=== PATIENT | male | born 1955 | race African-American/Black ===

== ENCOUNTER 2020-11-06 16:09 | Inpatient (IN) | payer OTHER ==
[2020-11-06] MEDS ORDERED: DEXAMETHASONE SOD PHOSPHATE 10 MG/1 ML VIAL IVPUSH ONE (17:39)
[2020-11-06] MEDS ORDERED: DEXAMETHASONE SOD PHOSPHATE 10 MG/1 ML VIAL ONE (17:41)
[2020-11-06 18:19] LABS: VENOUS BASE EXCESS -2.6 mmol/L (-2-2); VENOUS PCO2 43.3 mmHg (38-52); VENOUS PH 7.345 (7.310-7.410)
[2020-11-06 18:26] LABS: BASO % 1.6 % (0-2.0); EOS % 0.2 % (0-4.5); HEMATOCRIT 42.3 % (35.4-49); HEMOGLOBIN 14.6 GM/dL (11.7-16.9); LYMPH % 6.1 % (8-40); MCH 31.6 pg (25.7-33.7); MCHC 34.4 g/dl (32.0-35.9); MEAN CELL VOLUME 91.7 fl (80-96); MEAN PLT VOLUME 8.9 fl (7.5-11.1); MONO % 7.9 % (3.8-10.2); NEUT % 84.2 % (42.8-82.8); PLATELET COUNT 234 K/MM3 (134-434); RBC 4.61 M/mm3 (4.00-5.60); RDW 13.2 % (11.9-15.9); WHITE BLOOD COUNT 6.6 K/mm3 (4.0-10.0)
[2020-11-06 18:31] LABS: INR 2.02 (0.83-1.09); PROTHROMBIN TIME (PATIENT) 24.3 SEC (9.7-13.0)
[2020-11-06 18:34] LABS: ACTIVATED PTT 32.3 SECONDS (25.2-36.5)
[2020-11-06] MEDS ORDERED: AZITHROMYCIN 500 MG TABLET PO ONE (18:36)
[2020-11-06] MEDS ORDERED: CEFTRIAXONE 1,000 MG in DEXTROSE 5%-WATER - 50 ML IVPB ONE (18:36)
[2020-11-06 18:39] LABS: CHLORIDE 104 mmol/L (98-107); POTASSIUM 4.5 mmol/L (3.5-5.1); SODIUM 140 mmol/L (136-145)
[2020-11-06 18:41] LABS: ANION GAP 6 MMOL/L (8-16); BLOOD UREA NITROGEN 15.6 mg/dL (7-18); CALCIUM 8.7 mg/dL (8.5-10.1); CO2 29 mmol/L (21-32)
[2020-11-06 18:42] LABS: ALBUMIN 3.2 g/dl (3.4-5.0); GLUCOSE,RANDOM 106 mg/dL (74-106)
[2020-11-06 18:44] LABS: CREATININE 1.1 mg/dL (0.55-1.3)
[2020-11-06 18:45] LABS: SGOT/AST 34 U/L (15-37); SGPT/ALT 23 U/L (13-61)
[2020-11-06 18:46] LABS: BILIRUBIN,TOTAL 0.8 mg/dL (0.2-1); LDH 722 U/L (87-246)
[2020-11-06 18:47] LABS: ALK PHOS 53 U/L (45-117)
[2020-11-06] MEDS ORDERED: CEFTRIAXONE 1 GM/50 ML BAG ONE (19:06)
[2020-11-06] MEDS ORDERED: AZITHROMYCIN 500 MG TABLET ONE (19:06)
[2020-11-06] MEDS ORDERED: APIXABAN 5 MG TABLET PO ONE (23:15)
[2020-11-06] MEDS ORDERED: APIXABAN 5 MG TABLET ONE (23:28)
[2020-11-07] MEDS ORDERED: MAG HYDROX/AL HYDROX/SIMETH 30 ML UNIT-DOSE CUP ONE (03:39)
[2020-11-07 07:04] LABS: BASO % 0.1 % (0-2.0); HEMATOCRIT 41.9 % (35.4-49); HEMOGLOBIN 14.6 GM/dL (11.7-16.9); LYMPH % 9.8 % (8-40); MCH 31.8 pg (25.7-33.7); MCHC 34.8 g/dl (32.0-35.9); MEAN CELL VOLUME 91.6 fl (80-96); MEAN PLT VOLUME 8.9 fl (7.5-11.1); MONO % 4.8 % (3.8-10.2); NEUT % 85.3 % (42.8-82.8); PLATELET COUNT 270 K/MM3 (134-434); RBC 4.58 M/mm3 (4.00-5.60); RDW 13.8 % (11.9-15.9); WHITE BLOOD COUNT 5.6 K/mm3 (4.0-10.0)
[2020-11-07 07:22] LABS: POTASSIUM 4.4 mmol/L (3.5-5.1)
[2020-11-07 07:24] LABS: CALCIUM 9.1 mg/dL (8.5-10.1)
[2020-11-07 07:25] LABS: ALBUMIN 3.1 g/dl (3.4-5.0); BLOOD UREA NITROGEN 19.5 mg/dL (7-18)
[2020-11-07 07:29] LABS: BILIRUBIN,TOTAL 0.6 mg/dL (0.2-1)
[2020-11-07] MEDS ORDERED: APIXABAN 5 MG TABLET PO SCH (10:00)
[2020-11-07] MEDS ORDERED: DEXAMETHASONE SOD PHOSPHATE 10 MG/1 ML VIAL ONE (11:05)
[2020-11-07] MEDS ORDERED: ASCORBIC ACID 500 MG TABLET (FP) ONE (11:05)
[2020-11-07] MEDS ORDERED: CHOLECALCIFEROL (VIT D3) 1,000 UNIT (25 MCG) TABLET ONE (11:06)
[2020-11-07] MEDS ORDERED: APIXABAN 5 MG TABLET ONE (11:06)
[2020-11-07] MEDS ORDERED: ZINC SULFATE 220 MG CAPSULE (FP) ONE (11:06)
[2020-11-07] MEDS ORDERED: CEFTRIAXONE 1 GM/50 ML BAG ONE (11:06)
[2020-11-07] MEDS: ZINC SULFATE 220 MG CAPSULE (FP) PO SCH ×2 (11:23→22:08)
[2020-11-07] MEDS: DEXAMETHASONE SOD PHOSPHATE 4 MG/1 ML VIAL IVPUSH SCH (11:23)
[2020-11-07] MEDS: ASCORBIC ACID 500 MG TABLET (FP) PO SCH ×2 (11:24→22:08)
[2020-11-07] MEDS: CEFTRIAXONE 1 GM in DEXTROSE 5%-WATER - 50 ML IVPB SCH (11:24)
[2020-11-07] MEDS: CHOLECALCIFEROL (VIT D3) 1,000 UNIT (25 MCG) TABLET PO SCH (11:24)
[2020-11-07] MEDS: AZITHROMYCIN IVPB 250 MG in DEXTROSE 5%-WATER - 250 ML IVPB SCH (12:00)
[2020-11-07] MEDS: ENOXAPARIN NA (PORCINE) 120 MG/0.8 ML DISP.SYRIN SQ SCH (23:06)
[2020-11-08 00:05] VITALS: BMI 34.9
[2020-11-08 07:23] LABS: BASO % 0.1 % (0-2.0); HEMATOCRIT 40.4 % (35.4-49); HEMOGLOBIN 13.6 GM/dL (11.7-16.9); LYMPH % 3.2 % (8-40); MCH 30.9 pg (25.7-33.7); MCHC 33.6 g/dl (32.0-35.9); MEAN CELL VOLUME 92.2 fl (80-96); MEAN PLT VOLUME 8.8 fl (7.5-11.1); MONO % 6.5 % (3.8-10.2); NEUT % 90.2 % (42.8-82.8); PLATELET COUNT 325 K/MM3 (134-434); RBC 4.39 M/mm3 (4.00-5.60); RDW 13.5 % (11.9-15.9); WHITE BLOOD COUNT 14.9 K/mm3 (4.0-10.0)
[2020-11-08 07:46] LABS: POTASSIUM 4.8 mmol/L (3.5-5.1)
[2020-11-08 08:24] LABS: ALBUMIN 2.6 g/dl (3.4-5.0); BLOOD UREA NITROGEN 21.5 mg/dL (7-18); CALCIUM 8.4 mg/dL (8.5-10.1)
[2020-11-08 08:29] LABS: BILIRUBIN,TOTAL 0.6 mg/dL (0.2-1); TOT PROT 6.1 g/dl (6.4-8.2)
[2020-11-08] MEDS ORDERED: PT OWN MED DRAWER 7, Y5N ONE (09:22)
[2020-11-08] MEDS ORDERED: cefTRIAXone SODIUM 1 GM VIAL ONE (09:23)
[2020-11-08] MEDS ORDERED: DEXTROSE 5%-WATER - 50 ML IVPB ONE (09:23)
[2020-11-08] MEDS: ASCORBIC ACID 500 MG TABLET (FP) PO SCH ×2 (09:56→21:57)
[2020-11-08] MEDS: CHOLECALCIFEROL (VIT D3) 1,000 UNIT (25 MCG) TABLET PO SCH (09:56)
[2020-11-08] MEDS: ENOXAPARIN NA (PORCINE) 120 MG/0.8 ML DISP.SYRIN SQ SCH ×2 (09:56→10:11)
[2020-11-08] MEDS: ZINC SULFATE 220 MG CAPSULE (FP) PO SCH ×2 (09:56→21:57)
[2020-11-08] MEDS: CEFTRIAXONE 1 GM in DEXTROSE 5%-WATER - 50 ML IVPB SCH (09:56)
[2020-11-08] MEDS: DEXAMETHASONE SOD PHOSPHATE 4 MG/1 ML VIAL IVPUSH SCH (09:56)
[2020-11-08] MEDS: AZITHROMYCIN IVPB 250 MG in DEXTROSE 5%-WATER - 250 ML IVPB SCH (11:01)
[2020-11-08] MEDS ORDERED: APIXABAN 5 MG TABLET PO ONE (12:30)
[2020-11-08] MEDS: APIXABAN 5 MG TABLET PO SCH (21:57)
[2020-11-09 07:50] LABS: BASO % 0.1 % (0-2.0); HEMATOCRIT 41.3 % (35.4-49); HEMOGLOBIN 13.8 GM/dL (11.7-16.9); LYMPH % 7.1 % (8-40); MCHC 33.5 g/dl (32.0-35.9); MEAN CELL VOLUME 92.4 fl (80-96); MEAN PLT VOLUME 7.8 fl (7.5-11.1); NEUT % 84.8 % (42.8-82.8); PLATELET COUNT 308 K/MM3 (134-434); RBC 4.47 M/mm3 (4.00-5.60); RDW 13.7 % (11.9-15.9); WHITE BLOOD COUNT 11.9 K/mm3 (4.0-10.0)
[2020-11-09 08:17] LABS: POTASSIUM 4.1 mmol/L (3.5-5.1)
[2020-11-09 08:31] LABS: CALCIUM 8.7 mg/dL (8.5-10.1)
[2020-11-09 08:32] LABS: BLOOD UREA NITROGEN 19.2 mg/dL (7-18)
[2020-11-09 08:34] LABS: ALBUMIN 2.7 g/dl (3.4-5.0)
[2020-11-09 08:36] LABS: BILIRUBIN,TOTAL 0.7 mg/dL (0.2-1); TOT PROT 6.1 g/dl (6.4-8.2)
[2020-11-09] MEDS ORDERED: cefTRIAXone SODIUM 1 GM VIAL ONE (09:41)
[2020-11-09] MEDS ORDERED: DEXTROSE 5%-WATER - 50 ML IVPB ONE (09:41)
[2020-11-09] MEDS: APIXABAN 5 MG TABLET PO SCH ×2 (10:12→22:05)
[2020-11-09] MEDS: ASCORBIC ACID 500 MG TABLET (FP) PO SCH ×2 (10:12→22:05)
[2020-11-09] MEDS: CHOLECALCIFEROL (VIT D3) 1,000 UNIT (25 MCG) TABLET PO SCH (10:12)
[2020-11-09] MEDS: CEFTRIAXONE 1 GM in DEXTROSE 5%-WATER - 50 ML IVPB SCH (10:12)
[2020-11-09] MEDS: ZINC SULFATE 220 MG CAPSULE (FP) PO SCH ×2 (10:12→22:05)
[2020-11-09] MEDS: DEXAMETHASONE SOD PHOSPHATE 4 MG/1 ML VIAL IVPUSH SCH (10:12)
[2020-11-09] MEDS: AZITHROMYCIN IVPB 250 MG in DEXTROSE 5%-WATER - 250 ML IVPB SCH (11:13)
[2020-11-09] MEDS: guaiFENesin/CODEINE 10 ML UNIT-DOSE CUPS PO PRN (13:32)
[2020-11-09] MEDS: BUDESONIDE/FORMETEROL FUMARATE 160/4.5 mcg INHALER IH SCH ×2 (15:07→22:05)
[2020-11-10 08:05] LABS: BASO % 0.1 % (0-2.0); EOS % 0.3 % (0-4.5); HEMATOCRIT 39.4 % (35.4-49); HEMOGLOBIN 13.7 GM/dL (11.7-16.9); LYMPH % 9.4 % (8-40); MCH 31.7 pg (25.7-33.7); MCHC 34.8 g/dl (32.0-35.9); MEAN CELL VOLUME 91.2 fl (80-96); MEAN PLT VOLUME 7.8 fl (7.5-11.1); MONO % 9.4 % (3.8-10.2); NEUT % 80.8 % (42.8-82.8); PLATELET COUNT 305 K/MM3 (134-434); RBC 4.31 M/mm3 (4.00-5.60); RDW 13.2 % (11.9-15.9); WHITE BLOOD COUNT 11.6 K/mm3 (4.0-10.0)
[2020-11-10 08:11] LABS: POTASSIUM 4.3 mmol/L (3.5-5.1)
[2020-11-10 08:24] LABS: BLOOD UREA NITROGEN 18.4 mg/dL (7-18); CALCIUM 8.6 mg/dL (8.5-10.1)
[2020-11-10 08:25] LABS: ALBUMIN 2.6 g/dl (3.4-5.0)
[2020-11-10 08:29] LABS: BILIRUBIN,TOTAL 0.6 mg/dL (0.2-1)
[2020-11-10] MEDS ORDERED: DEXTROSE 5%-WATER - 50 ML IVPB ONE (09:40)
[2020-11-10] MEDS ORDERED: cefTRIAXone SODIUM 1 GM VIAL ONE (09:40)
[2020-11-10] MEDS: CHOLECALCIFEROL (VIT D3) 1,000 UNIT (25 MCG) TABLET PO SCH (10:07)
[2020-11-10] MEDS: DEXAMETHASONE SOD PHOSPHATE 4 MG/1 ML VIAL IVPUSH SCH (10:07)
[2020-11-10] MEDS: APIXABAN 5 MG TABLET PO SCH ×2 (10:07→22:13)
[2020-11-10] MEDS: ASCORBIC ACID 500 MG TABLET (FP) PO SCH ×2 (10:08→22:13)
[2020-11-10] MEDS: ZINC SULFATE 220 MG CAPSULE (FP) PO SCH ×2 (10:08→22:13)
[2020-11-10] MEDS: BUDESONIDE/FORMETEROL FUMARATE 160/4.5 mcg INHALER IH SCH ×2 (10:08→22:21)
[2020-11-10 10:26] LABS: ANISOCYTOSIS 0; MACROCYTOSIS 0; PLATELET ESTIMATE NORMAL
[2020-11-10] MEDS: CEFTRIAXONE 1 GM in DEXTROSE 5%-WATER - 50 ML IVPB SCH (10:30)
[2020-11-10] MEDS: AZITHROMYCIN IVPB 250 MG in DEXTROSE 5%-WATER - 250 ML IVPB SCH (12:30)
[2020-11-10] MEDS: guaiFENesin/CODEINE 10 ML UNIT-DOSE CUPS PO PRN ×2 (14:37→22:21)
[2020-11-11 07:18] LABS: BASO % 0.3 % (0-2.0); EOS % 0.8 % (0-4.5); HEMATOCRIT 40.4 % (35.4-49); HEMOGLOBIN 13.7 GM/dL (11.7-16.9); LYMPH % 9.5 % (8-40); MCH 31.1 pg (25.7-33.7); MEAN CELL VOLUME 91.6 fl (80-96); MEAN PLT VOLUME 7.9 fl (7.5-11.1); MONO % 9.7 % (3.8-10.2); NEUT % 79.7 % (42.8-82.8); PLATELET COUNT 343 K/MM3 (134-434); RBC 4.41 M/mm3 (4.00-5.60); RDW 13.4 % (11.9-15.9); WHITE BLOOD COUNT 13.2 K/mm3 (4.0-10.0)
[2020-11-11 07:39] LABS: POTASSIUM 4.4 mmol/L (3.5-5.1)
[2020-11-11 07:43] LABS: ALBUMIN 2.5 g/dl (3.4-5.0); BLOOD UREA NITROGEN 19.2 mg/dL (7-18); CALCIUM 8.6 mg/dL (8.5-10.1)
[2020-11-11 07:48] LABS: BILIRUBIN,TOTAL 0.5 mg/dL (0.2-1)
[2020-11-11 09:45] LABS: ANISOCYTOSIS 0; MACROCYTOSIS 0; PLATELET ESTIMATE NORMAL
[2020-11-11] MEDS ORDERED: cefTRIAXone SODIUM 1 GM VIAL ONE (09:47)
[2020-11-11] MEDS ORDERED: DEXTROSE 5%-WATER - 50 ML IVPB ONE (09:47)
[2020-11-11] MEDS: CEFTRIAXONE 1 GM in DEXTROSE 5%-WATER - 50 ML IVPB SCH (10:05)
[2020-11-11] MEDS: CHOLECALCIFEROL (VIT D3) 1,000 UNIT (25 MCG) TABLET PO SCH (10:06)
[2020-11-11] MEDS: APIXABAN 5 MG TABLET PO SCH ×2 (10:06→21:38)
[2020-11-11] MEDS: DEXAMETHASONE SOD PHOSPHATE 4 MG/1 ML VIAL IVPUSH SCH (10:06)
[2020-11-11] MEDS: ZINC SULFATE 220 MG CAPSULE (FP) PO SCH ×2 (10:06→21:38)
[2020-11-11] MEDS: ASCORBIC ACID 500 MG TABLET (FP) PO SCH ×2 (10:06→21:39)
[2020-11-11] MEDS: BUDESONIDE/FORMETEROL FUMARATE 160/4.5 mcg INHALER IH SCH ×2 (10:07→21:39)
[2020-11-12 06:34] LABS: BASO % 0.5 % (0-2.0); EOS % 0.6 % (0-4.5); HEMATOCRIT 40.9 % (35.4-49); HEMOGLOBIN 13.7 GM/dL (11.7-16.9); LYMPH % 7.6 % (8-40); MCH 30.9 pg (25.7-33.7); MCHC 33.4 g/dl (32.0-35.9); MEAN CELL VOLUME 92.5 fl (80-96); MONO % 10.8 % (3.8-10.2); NEUT % 80.5 % (42.8-82.8); PLATELET COUNT 379 K/MM3 (134-434); RBC 4.42 M/mm3 (4.00-5.60); RDW 13.4 % (11.9-15.9); WHITE BLOOD COUNT 13.6 K/mm3 (4.0-10.0)
[2020-11-12 06:53] LABS: POTASSIUM 4.2 mmol/L (3.5-5.1)
[2020-11-12 06:54] LABS: CALCIUM 8.9 mg/dL (8.5-10.1)
[2020-11-12 06:55] LABS: ALBUMIN 2.5 g/dl (3.4-5.0); BLOOD UREA NITROGEN 22.5 mg/dL (7-18)
[2020-11-12 06:58] LABS: CREATININE 1.1 mg/dL (0.55-1.3)
[2020-11-12 06:59] LABS: BILIRUBIN,TOTAL 0.4 mg/dL (0.2-1)
[2020-11-12 07:00] LABS: TOT PROT 5.9 g/dl (6.4-8.2)
[2020-11-12] MEDS ORDERED: DEXTROSE 5%-WATER - 50 ML IVPB ONE (09:12)
[2020-11-12] MEDS ORDERED: cefTRIAXone SODIUM 1 GM VIAL ONE (09:12)
[2020-11-12] MEDS: CHOLECALCIFEROL (VIT D3) 1,000 UNIT (25 MCG) TABLET PO SCH (09:21)
[2020-11-12] MEDS: ASCORBIC ACID 500 MG TABLET (FP) PO SCH ×2 (09:21→22:20)
[2020-11-12] MEDS: ZINC SULFATE 220 MG CAPSULE (FP) PO SCH ×2 (09:21→22:20)
[2020-11-12] MEDS: APIXABAN 5 MG TABLET PO SCH ×2 (09:21→22:20)
[2020-11-12] MEDS: CEFTRIAXONE 1 GM in DEXTROSE 5%-WATER - 50 ML IVPB SCH (09:21)
[2020-11-12] MEDS: DEXAMETHASONE SOD PHOSPHATE 4 MG/1 ML VIAL IVPUSH SCH (09:21)
[2020-11-12] MEDS: BUDESONIDE/FORMETEROL FUMARATE 160/4.5 mcg INHALER IH SCH ×2 (11:37→22:21)
[2020-11-12 11:40] LABS: ANISOCYTOSIS 0; MACROCYTOSIS 0; PLATELET ESTIMATE NORMAL
[2020-11-13 08:05] LABS: BASO % 0.5 % (0-2.0); EOS % 0.9 % (0-4.5); HEMATOCRIT 39.1 % (35.4-49); HEMOGLOBIN 13.4 GM/dL (11.7-16.9); MCH 31.5 pg (25.7-33.7); MCHC 34.1 g/dl (32.0-35.9); MEAN CELL VOLUME 92.1 fl (80-96); MEAN PLT VOLUME 7.8 fl (7.5-11.1); MONO % 11.2 % (3.8-10.2); NEUT % 76.4 % (42.8-82.8); PLATELET COUNT 378 K/MM3 (134-434); RBC 4.25 M/mm3 (4.00-5.60); RDW 13.4 % (11.9-15.9); WHITE BLOOD COUNT 12.4 K/mm3 (4.0-10.0)
[2020-11-13 08:28] LABS: POTASSIUM 4.5 mmol/L (3.5-5.1)
[2020-11-13 08:34] LABS: CALCIUM 8.8 mg/dL (8.5-10.1)
[2020-11-13 08:35] LABS: ALBUMIN 2.5 g/dl (3.4-5.0); BLOOD UREA NITROGEN 20.3 mg/dL (7-18)
[2020-11-13 08:38] LABS: CREATININE 1.1 mg/dL (0.55-1.3)
[2020-11-13 08:39] LABS: BILIRUBIN,TOTAL 0.4 mg/dL (0.2-1); TOT PROT 5.9 g/dl (6.4-8.2)
[2020-11-13] MEDS ORDERED: DEXTROSE 5%-WATER - 50 ML IVPB ONE (09:03)
[2020-11-13] MEDS ORDERED: cefTRIAXone SODIUM 1 GM VIAL ONE (09:03)
[2020-11-13] MEDS: DEXAMETHASONE SOD PHOSPHATE 4 MG/1 ML VIAL IVPUSH SCH (09:49)
[2020-11-13] MEDS: CEFTRIAXONE 1 GM in DEXTROSE 5%-WATER - 50 ML IVPB SCH (09:49)
[2020-11-13] MEDS: APIXABAN 5 MG TABLET PO SCH ×2 (09:49→21:05)
[2020-11-13] MEDS: ASCORBIC ACID 500 MG TABLET (FP) PO SCH ×2 (09:50→21:05)
[2020-11-13] MEDS: BUDESONIDE/FORMETEROL FUMARATE 160/4.5 mcg INHALER IH SCH ×2 (09:50→21:03)
[2020-11-13] MEDS: ZINC SULFATE 220 MG CAPSULE (FP) PO SCH ×2 (09:50→21:05)
[2020-11-13] MEDS: CHOLECALCIFEROL (VIT D3) 1,000 UNIT (25 MCG) TABLET PO SCH (09:50)
[2020-11-13 10:19] LABS: ANISOCYTOSIS 1+; MACROCYTOSIS 0; PLATELET ESTIMATE NORMAL
[2020-11-14 07:33] LABS: BASO % 0.4 % (0-2.0); EOS % 0.3 % (0-4.5); HEMATOCRIT 39.4 % (35.4-49); HEMOGLOBIN 13.5 GM/dL (11.7-16.9); LYMPH % 9.7 % (8-40); MCH 31.4 pg (25.7-33.7); MCHC 34.3 g/dl (32.0-35.9); MEAN CELL VOLUME 91.5 fl (80-96); MEAN PLT VOLUME 7.9 fl (7.5-11.1); MONO % 9.4 % (3.8-10.2); NEUT % 80.2 % (42.8-82.8); PLATELET COUNT 356 K/MM3 (134-434); RDW 13.5 % (11.9-15.9); WHITE BLOOD COUNT 14.3 K/mm3 (4.0-10.0)
[2020-11-14 07:39] LABS: POTASSIUM 4.4 mmol/L (3.5-5.1)
[2020-11-14 07:47] LABS: ALBUMIN 2.5 g/dl (3.4-5.0); BLOOD UREA NITROGEN 20.1 mg/dL (7-18); CALCIUM 8.3 mg/dL (8.5-10.1)
[2020-11-14 07:51] LABS: BILIRUBIN,TOTAL 0.7 mg/dL (0.2-1); TOT PROT 5.8 g/dl (6.4-8.2)
[2020-11-14] MEDS ORDERED: DEXTROSE 5%-WATER - 50 ML IVPB ONE (09:06)
[2020-11-14] MEDS ORDERED: cefTRIAXone SODIUM 1 GM VIAL ONE (09:06)
[2020-11-14] MEDS: ZINC SULFATE 220 MG CAPSULE (FP) PO SCH ×2 (09:19→21:43)
[2020-11-14] MEDS: CHOLECALCIFEROL (VIT D3) 1,000 UNIT (25 MCG) TABLET PO SCH (09:19)
[2020-11-14] MEDS: ASCORBIC ACID 500 MG TABLET (FP) PO SCH ×2 (09:19→21:43)
[2020-11-14] MEDS: BUDESONIDE/FORMETEROL FUMARATE 160/4.5 mcg INHALER IH SCH ×2 (09:20→21:45)
[2020-11-14] MEDS: APIXABAN 5 MG TABLET PO SCH ×2 (09:20→21:43)
[2020-11-14] MEDS: DEXAMETHASONE SOD PHOSPHATE 4 MG/1 ML VIAL IVPUSH SCH (09:20)
[2020-11-14 09:22] LABS: ANISOCYTOSIS 0; MACROCYTOSIS 0; PLATELET ESTIMATE NORMAL
[2020-11-15 07:44] LABS: BASO % 0.5 % (0-2.0); EOS % 0.6 % (0-4.5); HEMATOCRIT 40.6 % (35.4-49); HEMOGLOBIN 13.8 GM/dL (11.7-16.9); LYMPH % 9.8 % (8-40); MCH 31.4 pg (25.7-33.7); MEAN CELL VOLUME 92.1 fl (80-96); MEAN PLT VOLUME 8.1 fl (7.5-11.1); MONO % 8.4 % (3.8-10.2); NEUT % 80.7 % (42.8-82.8); PLATELET COUNT 334 K/MM3 (134-434); RBC 4.41 M/mm3 (4.00-5.60); RDW 13.4 % (11.9-15.9); WHITE BLOOD COUNT 13.4 K/mm3 (4.0-10.0)
[2020-11-15 07:53] LABS: POTASSIUM 4.8 mmol/L (3.5-5.1)
[2020-11-15 08:02] LABS: ALBUMIN 2.6 g/dl (3.4-5.0); BLOOD UREA NITROGEN 18.6 mg/dL (7-18); CALCIUM 8.6 mg/dL (8.5-10.1)
[2020-11-15 08:06] LABS: CREATININE 1.1 mg/dL (0.55-1.3)
[2020-11-15 08:07] LABS: BILIRUBIN,TOTAL 0.4 mg/dL (0.2-1); TOT PROT 5.8 g/dl (6.4-8.2)
[2020-11-15] MEDS: DEXAMETHASONE SOD PHOSPHATE 4 MG/1 ML VIAL IVPUSH SCH (09:58)
[2020-11-15] MEDS: BUDESONIDE/FORMETEROL FUMARATE 160/4.5 mcg INHALER IH SCH (09:58)
[2020-11-15] MEDS: APIXABAN 5 MG TABLET PO SCH (09:58)
[2020-11-15] MEDS: ASCORBIC ACID 500 MG TABLET (FP) PO SCH (09:58)
[2020-11-15] MEDS: ZINC SULFATE 220 MG CAPSULE (FP) PO SCH (09:58)
[2020-11-15] MEDS: CHOLECALCIFEROL (VIT D3) 1,000 UNIT (25 MCG) TABLET PO SCH (09:58)
[2020-11-15 11:57] LABS: ANISOCYTOSIS 0; HELMET CELLS 0; HOWELL-JOLLY BODIES 0; MACROCYTOSIS 0; OVALOCYTE 0; PLATELET ESTIMATE NORMAL; ROULEAU 0; SICKELED CELLS 0; TARGET CELLS 0; TEAR DROP CELLS 0; TOXIC GRANULATION 0
[2020-11-15 14:10] VITALS: BP 115/65; PULSE 55; TEMP 98.3
== END 2020-11-15 15:28 | disposition home or self-care (01) | DRG 177 ==
LOC: JER 16:09 → JERBED 18:05 → J4W 11-07 21:33
PROVIDERS: ADMIT Internal Medicine; ATTEND Internal Medicine
DX: U07.1 COVID-19 (principal); J96.00 Acute respiratory failure, unspecified whether with hypoxia or hypercapnia; I26.99 Other pulmonary embolism without acute cor pulmonale; I82.512 Chronic embolism and thrombosis of left femoral vein; I82.532 Chronic embolism and thrombosis of left popliteal vein; Z79.01 Long term (current) use of anticoagulants; E66.9 Obesity, unspecified; Z68.34 Body mass index [BMI] 34.0-34.9, adult
CPT/HCPCS: 36415; 71045-TC-FY; 71046-TC-FY; 71275-TC; 80053; 82728; 82803; 83605; 83615; 84484; 85025; 85379; 85610; 85730; 86140; 86769; 87040; 87804; 93005; 93010; 93971-TC; 94010; 94761; 99285-25; C9803; Q9967; U0003; U0005